=== PATIENT | female | born 1975 | race Caucasian/White ===

== ENCOUNTER 2024-10-22 17:00 | Emergency (ER) | payer MEDICAID | END 2024-10-22 17:39 | disposition left against medical advice (07) | LOC: ER 17:05 | DX: Z53.21 Procedure and treatment not carried out due to patient leaving prior to being seen by health care provider (principal) ==

== ENCOUNTER 2024-10-28 02:15 | Emergency (ER) | payer MEDICAID ==
[~2024-10-28] VITALS: Ht 165.1 cm; Wt 77.1 kg
[2024-10-28] MEDS ORDERED: LIDOCAINE 5% (PATCH) 1 EA PATCH TP ONE (03:27)
[2024-10-28] MEDS ORDERED: IBUPROFEN 600 MG TABLET ONE (03:27)
[2024-10-28] MEDS ORDERED: ACETAMINOPHEN ES 500 MG TABLET ONE (03:27)
[2024-10-28] MEDS: IBUPROFEN 600 MG TABLET PO ONE (03:33)
[2024-10-28] MEDS: LIDOCAINE 5% (PATCH) 1 EA PATCH TP SCH (03:33)
[2024-10-28] MEDS: ACETAMINOPHEN ES 500 MG TABLET PO ONE (03:33)
[2024-10-28 06:32] LABS: APPEARANCE,URINE CLOUDY (CLEAR); BILIRUBIN,URINE NEGATIVE (NEGATIVE); BLOOD, URINE NEGATIVE Ery/uL (NEGATIVE); COLOR,URINE DARK YELLOW (YELLOW); KETONES,URINE NEGATIVE (NEGATIVE); LEUKOCYTE ESTERASE ,URINE TRACE (NEGATIVE); NITRITE, URINE POSITIVE (NEGATIVE); PROTEIN,URINE NEGATIVE (NEGATIVE); UGLUCOSE NEGATIVE (NEGATIVE)
[2024-10-28 06:33] LABS: PREGNANCY TEST URINE QUAL NEGATIVE (NEGATIVE)
[2024-10-28 06:34] LABS: ADD URINE CULTURE YES; BACTERIA,URINE Few /HPF (None Seen); SQUAMOUS EPITHELIAL CELL,UR Rare /HPF (None Seen); WBC,URINE 21-50 /HPF (0-3)
[2024-10-28] MEDS ORDERED: NAPR-1164 PO (07:54)
[2024-10-28] MEDS ORDERED: CEPH-570 PO (07:54)
[2024-10-28 08:42] VITALS: BP 148/97; TEMP 98; O2SAT 98
== END 2024-10-28 08:42 | disposition home or self-care (01) ==
LOC: ER 02:21
DX: R07.89 Other chest pain (principal); F17.200 Nicotine dependence, unspecified, uncomplicated; F19.11 Other psychoactive substance abuse, in remission; I10 Essential (primary) hypertension; N64.4 Mastodynia; R30.0 Dysuria; Z88.2 Allergy status to sulfonamides
CPT/HCPCS: 71100-TC; 81001; 84703-TC; 87086-TC